=== PATIENT | male | born 1945 | race Two or more races ===

== ENCOUNTER 2023-06-03 11:44 | Emergency (ER) | payer OTHER ==
[~2023-06-03] VITALS: Ht 165.1 cm; Wt 56.7 kg
[2023-06-03] MEDS ORDERED: CRESTOR10 MG (12:44)
[2023-06-03 14:38] LABS: PH,URINE 6.5 (5.0-8.0); URINE APPEARANCE Turbid; URINE BILIRRUBIN Negative (NEGATIVE); URINE BLOOD Large; URINE COLOR Dark Yellow; URINE GLUCOSE Negative (NEGATIVE); URINE LEUKOCYTE Large; URINE NITRATE Negative
[2023-06-03 14:41] LABS: URINE BACTERIA 806.3 uL (0.0-1933); URINE EPITHELIAL CELLS 3.5 uL (0.0-38.8)
[2023-06-03 14:52] LABS: URINE PROTEIN 300 (NEGATIVE); URINE RBC > 10558.9 uL (0.0-20.8); URINE WBC > 5548.3 uL (0.0-23.2)
[2023-06-03 14:58] LABS: HEMATOCRIT 40.8 % (39.0-48.0); HEMOGLOBIN 13.6 g/dL (13-16.00); MEAN CELL VOLUME 86.2 fL (80.0-100.00); MEAN CORPUSCULAR HEMOGLOBIN 28.6 pg (27.00-32.0); MEAN CORPUSCULAR HGB CONC 33.2 g/dl (32.0-36.0); PLATELET COUNT 154 K/uL (150-450); RED BLOOD COUNT 4.73 M/uL (4.00-6.00); RED CELL DISTRIBUTION WIDTH 15.4 % (11.5-14.5)
[2023-06-03 15:11] LABS: CALCIUM 9.1 mg/dL (8.5-10.1); CREATININE SERUM 1.04 mg/dL (0.70-1.30); GFR 69.25; POTASSIUM 4.31 mEq/L (3.5-5.1)
[2023-06-03] MEDS ORDERED: LEVOFLOXACIN750 MG PO (16:38)
== END 2023-06-03 17:00 | disposition home or self-care (01) ==
LOC: ER 11:44
PROVIDERS: General Practice
DX: N39.0 Urinary tract infection, site not specified (principal); Z86.79 Personal history of other diseases of the circulatory system
CPT/HCPCS: 36415; 96365; 99283; J0744